=== PATIENT | female | born 1995 | race Caucasian/White ===

== ENCOUNTER 2023-07-20 09:58 | Outpatient (OUT) | payer OTHER, SELFPAY ==
[2023-07-20 10:10] LABS: Basophils Absolute Auto 0.1 10^3/uL (0.0-0.1); Basophils Percent Auto 0.7 % (0.2-2.0); Eosinophils Absolute Auto 0.2 10^3/uL (0.0-0.7); Eosinophils Percent Auto 1.7 % (0.9-7.0); Hematocrit 44.2 % (36.0-48.0); Hemoglobin 14.9 g/dL (12.0-16.0); Immature Granulocytes Abs Auto 0.02 10^3/uL (0.00-0.03); Immature Granulocytes Pct Auto 0.2 % (0.0-0.5); Lymphocytes Absolute Auto 1.7 10^3/uL (1.2-3.8); Lymphocytes Percent Auto 19.2 % (20.5-60.0); Mean Corpuscular HGB Conc 33.7 g/dL (29.9-35.2); Mean Corpuscular Hemoglobin 28.9 pg (26.7-34.0); Mean Corpuscular Volume 85.8 fL (81.0-99.0); Mean Platelet Volume 12.4 fL (9.5-13.5); Monocytes Absolute Auto 0.8 10^3/uL (0.3-0.8); Monocytes Percent Auto 8.4 % (1.7-12.0); Neutrophils Absolute Auto 6.3 10^3/uL (1.4-6.5); Neutrophils Percent Auto 69.8 % (43.0-75.0); Platelet Count 262 10^3/uL (150-450); Red Blood Count 5.15 10^6/uL (4.20-5.40)
[2023-07-20 11:01] LABS: Alanine Aminotransferase 26 U/L (14-59); Albumin Level 4.2 g/dL (3.4-5.0); Alkaline Phosphatase 71 U/L (46-116); Anion Gap 14.3; Aspartate Amino Transferase 23 U/L (15-37); BUN Creatinine Ratio 8.3; Bilirubin Total 0.8 mg/dL (0.2-1.0); Calcium 8.7 mg/dL (8.5-10.1); Carbon Dioxide 26.2 mmol/L (21.0-32.0); Chloride 102 mmol/L (98-107); Estimated GFR (African America >60 (>=60); Estimated GFR (Non-African Ame >60 (>=60); Globulin 4.3 g/dL; Glucose 92 mg/dL (74-106); Potassium 3.5 mmol/L (3.5-5.1); Sodium 139 mmol/L (136-145); Total Protein 8.5 g/dL (6.4-8.2)
== END 2023-07-20 09:59 | disposition home or self-care (01) ==
PROVIDERS: PCP Internal Medicine; Visit Provider Internal Medicine
DX: Z01.818 Encounter for other preprocedural examination (principal)
CPT/HCPCS: 36415; 80053; 85025

== ENCOUNTER 2025-10-09 08:04 | Outpatient (OUT) | payer OTHER, SELFPAY ==
--- OUTSIDE RECORDS SUMMARY | 2025-10-07 09:00 | XMS_ITS | Encounter Summary ---
Author Organization [facility] Address [address] [place] [address] Care Team Providers Care Hvac R Tech Name Role Phone Shaikh SONIDO Kearney Unavailable [phone] Usman Amaya DO Primary Care Provider [phone] Reason for Visit * ReasonCommentsGAHT Encounter Details DateTypeDepartmentCare Team (Latest Contact Info)Qtlgzwydmyj49/11/2025 9:00 AM ESTOffice Visit [facility] [address], [address] [place] [address] Usman Amaya DO [address] [facility] [address] [place] [address] White coat syndrome without diagnosis of hypertension (Primary Dx); Gender dysphoria; Gender dysphoria in adult Social History Tobacco UseTypesPacks/DayYears UsedDateSmoking Tobacco: NeverSmokeless Tobacco: NeverAlcohol UseStandard Drinks/WeekCommentsNever0 (1 standard drink = 0.6 oz pure alcohol)B1300 Health LiteracyAnswerDate RecordedHow often do you need to have someone help you when you read instructions, pamphlets, or other written material from your doctor or pharmacy?Never06/06/2025Humiliation, Afraid, Rape, and Kick questionnaireAnswerDate RecordedWithin the last year, have you been afraid of your partner or ex-partner?No06/06/2025Within the last year, have you been humiliated or emotionally abused in other ways by your partner or ex-partner?No06/06/2025Within the last year, have you been kicked, hit, slapped, or otherwise physically hurt by your partner or ex-partner?No06/06/2025Within the last year, have you been raped or forced to have any kind of sexual activity by your partner or ex-partner?No06/06/2025Social Connection and Isolation Panel AnswerDate RecordedIn a typical week, how many times do you talk on the phone with family, friends, or neighbors?Three times a week06/06/2025How often do you get together with friends or relatives?More than three times a week06/06/2025How often do you attend shinto or catholic services?Never06/06/2025Do you belong to any clubs or organizations such as shinto groups, unions, [employer] or athletic groups, or school groups?No06/06/2025How often do you attend meetings of the clubs or organizations you belong to?Never06/06/2025re you , , , , never , or living with a partner?Never 06/06/2025UDIT-CAnswerDate RecordedQ1: How often do you have a drink containing alcohol?Never07/08/2025Q2: How many drinks containing alcohol do you have on a typical day when you are drinking?Patient does not drink07/08/2025Q3: How often do you have six or more drinks on one occasion?Never07/08/2025Overall Financial Resource Strain (CARDIA)AnswerDate RecordedHow hard is it for you to pay for the very basics like food, housing, medical care, and heating?Not very hard 06/06/2025PHQ-2AnswerDate RecordedPatient Health Questionnaire-2 Score0 10/07/2025[facility] Occupational Health - Occupational Stress QuestionnaireAnswerDate RecordedDo you feel stress - tense, restless, nervous, or anxious, or unable to sleep at night because yourmind is troubled all the time - these days?Rather much06/06/2025Exercise Vital SignAnswerDate RecordedOn average, how many days per week do you engage in moderate to strenuous exercise (like a brisk walk)?1 day06/06/2025On average, how many minutes do you engage in exercise at this level?10 min06/06/2025Hunger Vital SignAnswerDate Recorded Within the past 12 months, you worried that your food would run out before you got the money to buymore.Never true06/06/2025Within the past 12 months, the food you bought just didn't last and you didn't have money to get more.Never true 06/06/2025PRAPARE - TransportationAnswerDate RecordedIn the past 12 months, has lack of transportation kept you from medical appointments or from getting medications?No06/06/2025In the past 12 months, has lack of transportation kept you from meetings, work, or from getting things needed for daily living?No 06/06/2025Housing Stability Vital SignAnswerDate RecordedIn the last 12 months, was there a time when you were not able to pay the mortgage or rent on time?No 06/06/2025In the past 12 months, how many times have you moved where you were living?t any time in the past 12 months, were you homeless or living in a fpc (including now)?No06/06/2025CommentsUnknownSex and Gender InformationValueDate RecordedSex Assigned at BirthNot on fileLegal SexMale 06/06/2025 1:15 PM EDTGender IdentityTransgender Male06/06/2025 1:15 PM EDT Sexual KpemxxqvbilKtlwhzsb05/15/2025 9:28 AM EDTdocumented as of this encounter Last Filed Vital Signs Vital SignReadingTime TakenCommentsBlood Ycrhxykc720/80112/07/2024 9:04 AM EST Rtirn19618/11/2025 9:04 AM CDNKhzmzvakigq67.1 ??C (98.8 ??F)10/07/2025 9:04 AM ESTRespiratory Vwfx0761 9:04 AM ESTOxygen Sctwsxyiyo36%10/07/2025 9:04 AM ESTInhaled Oxygen Concentration--Tsrxrw27.4 kg (175 lb)10/07/2025 9:04 AM EST Krzggw661.1 cm (5' 5 )10/07/2025 9:04 AM ESTBody Mass Index29.12112/07/2024 9:04 AM ESTdocumented in this encounter Functional Status * Over the past 2 weeks, how often have you been bothered by any of the following problems?QuestionAnswerDate of AssessmentAuthorLittle interest or pleasure in doing thingsNot at all10/07/2025 9:04 AM Radha Cee MA Feeling down, depressed, or hopelessNot at all10/07/2025 9:04 AM Radha Cee MAPatient Health Questionnaire-2 Ulvrn27912/07/2024 9:04 AM Radha Cee MA documented as of this encounter Progress Notes * Usman Amaya DO - 10/07/2025 9:00 AM EST Images from the original note were not included. FAMILY MEDICINE NOTE Chief Complaint: GAHT HPI: Gender Affirming Care How have you been feeling overall since your last visit: Doing well Yes No Question Comments [] [x] Side Effects [] [x] Changes in mood [] [x] Changes in appetite [] [x] Missed doses [x] [] Positive changes in body/appearance [] [x] Any questions today For Injections: Any pain, swelling, or irritation at the injection sites: None Any difficulty with self-injection or anxiety about the process: None Gender Identity: transgender male Hypertension: Medication changes: No. Taking medications as prescribed: N/A Patient monitors blood pressure at home: yes. Log present today: yes. Any symptoms/side effects: No Social History Substance and Sexual Activity Sexual Activity Not on file Social History: Tobacco Use: Tobacco Use: Low Risk (10/07/2025) Patient History Smoking Tobacco Use: Never Smokeless Tobacco Use: Never Passive Exposure: Not on file Family History[1] SUBJECTIVE: Past Medical History SURGICAL/SOCIAL ALLERGIES: Medical History[2] Surgical History[3] Social History[4] Allergies[5] OBJECTIVE: 10/07/2025 9:04 AM 07/08/2025 8:57 AM 06/10/2025 9:17 AM Vitals BMI 29.12 kg/m2 29.12 kg/m2 29.12 kg/m2 BSA (m2) 1.91 m2 1.91 m2 1.91 m2 Systolic 128 148 124 Diastolic 80 98 98 Heart Rate 129 128 123 SpO2 98 % 99 % 99 % Temp 98.8 ??F 98 ??F 99.1 ??F Resp 20 20 20 Height (in) 5' 5 5' 5 5' 5 Weight (lb) 175 175 175 Visit Report Report Report Physical Exam Constitutional: Appearance: Normal appearance. Cardiovascular: Rate and Rhythm: Normal rate and regular rhythm. Heart sounds: No murmur heard. No friction rub. No gallop. Pulmonary: Breath sounds: Normal breath sounds. No wheezing, rhonchi or rales. Abdominal: General: Abdomen is flat. Bowel sounds are normal. There is no distension. Palpations: Abdomen is soft. There is no mass. Tenderness: There is no abdominal tenderness. There is no guarding. Musculoskeletal: General: Normal range of motion. Skin: General: Skin is warm. Neurological: General: No focal deficit present. Mental Status: He is alert. Mental status is at baseline. Psychiatric: Mood and Affect: Mood and affect normal. Behavior: Behavior normal. ASSESSMENT AND PLAN: Hollis was seen today for [facility]. Diagnoses and all orders for this visit: White coat syndrome without diagnosis of hypertension (Primary) Gender dysphoria - testosterone cypionate (Depo-Testosterone) 200 MG/ML injection; Inject 0.8 mL (160 mg) into the shoulder, thigh, or buttocks every 14 (fourteen) days - Syringe 23G X 1 3 ML misc; 1 Dose 1 (one) time per week - Syringe/Needle, Disp, (B-D 3CC LUER-BERNIE SYR 48KX4-1/2) 18G X 1-1/2 3 ML misc; Inject 1 Application into the shoulder, thigh, or buttocks 1 (one) time per week Gender dysphoria in adult - Testosterone, free, total; Future - CBC auto differential; Future - Testosterone, free, total - CBC auto differential Gender dysphoria: - recent change to intramuscular testosterone from transdermal. No significant injection site reactions or adverse effects reported. - Sent prescription refills to [facility] in [place]. Ordered blood work to assess testosterone troughlevels, to be drawn at [facility] the day before next scheduled injection. Advised that fasting is not required for blood draw. Follow-up scheduled in three months, with option for virtual or in-person visit. White coat hypertension: - Well-controlled blood pressure in office today and reportedly home logs are well-controlled, no change to current medical plan Patient's Medications New Prescriptions No medications on file Previous Medications No medications on file Modified Medications Modified Medication Previous Medication SYRINGE 23G X 1 3 ML MISC Syringe 23G X 1 3 ML misc 1 Dose 1 (one) time per week 1 Dose 1 (one) time per week SYRINGE/NEEDLE, DISP, (B-D 3CC LUER-BERNIE SYR 60EY9-2/2) 18G X 1-1/2 3 ML MISC B- D 3CC LUER-BERNIE SYR 15LX3-5/2 18G X 1-1/2 3 ML misc Inject 1 Application into the shoulder, thigh, or buttocks 1 (one) time per week use to INJECT testosterone ONCE A WEEK TESTOSTERONE CYPIONATE (DEPO-TESTOSTERONE) 200 MG/ML INJECTION testosterone cypionate (Depo-Testosterone) 200 MG/ML injection Inject 0.8 mL (160 mg) into the shoulder, thigh, or buttocks every 14 (fourteen) days Inject 0.8 mL(160 mg) into the shoulder, thigh, or buttocks every 14 (fourteen) days Discontinued Medications No medications on file Follow up in about 3 months (around 01/07/2026) for gaht f/u, virtual or in person okay. This note was prepared in part with the assistance of dictation and AI technologies; minor errors or omissions may be present. Usman Amaya DO [1] Family History Problem Relation Name Age of Onset Lung cancer Paternal Grandmother Diabetes Other [2] Past Medical History: Diagnosis Date Sleep apnea [3] Past Surgical History: Procedure Laterality Date BREAST SURGERY Bilateral TUBAL LIGATION Bilateral [4] Social History Tobacco Use Smoking status: Never Smokeless tobacco: Never Substance Use Topics Alcohol use: Never Drug use: Never [5] Allergies Allergen Reactions Peanut-Containing Drug Products Anaphylaxis and Hives Sulfa Antibiotics Anaphylaxis, Hives and Other documented in this encounter Plan of Treatment DateTypeDepartmentCare Team (Latest Contact Info)Niivmckgbos58/11/2026 9:20 AM ESTOffice Visit [facility] [address], [address] [place] [address] Usman Amaya DO [address] [place] [address] NameTypePriorityAssociated DiagnosesOrder ScheduleTestosterone, free, totalLab Routine Gender dysphoria in adult Expected: 10/07/2025 (Approximate), Expires: 10/07/2026BC auto differentialLab Routine Gender dysphoria in adult Expected: 10/07/2025 (Approximate), Expires: 10/07/2026documented as of this encounter Visit Diagnoses Diagnosis White coat syndrome without diagnosis of hypertension- Primary Gender dysphoria Gender dysphoria in adult documented in this encounter Care Teams Team MemberRelationshipSpecialtyStart DateEnd Date Shaikh Kearney MD [address] [place] [address] PCP - Medical [place] [employer]06/27/2212 Usman Amaya DO [address] [place] [address] PCP - GeneralFamily Medicine06/10/25documented as of this encounter
--- OUTSIDE RECORDS SUMMARY | 2025-10-09 08:10 | XMS_ITS | Encounter Summary ---
Author Organization [facility] Address [address] [place] [address] Care Team Providers Care Post Tronic Machine Operator Name Role Phone Shaikh SONIDO Kearney Unavailable [phone] Usman Amaya DO Primary Care Provider [phone] Encounter Details DateTypeDepartmentCare Team (Latest Contact Info)Osrofelorhy89/11/2025amboo flowsheet [facility] [address], [address] [place] [address] Usman Amaya DO [address] [place] [address] Social History Tobacco UseTypesPacks/DayYears UsedDateSmoking Tobacco: NeverSmokeless [...] times a week06/06/2025How often do you attend restorationism or synagogue services?Never06/06/2025Do you belong to any clubs or organizations such as restorationism groups, unions, fraternal or athletic groups, or school groups?No06/06/2025How often [...] very hard 06/06/2025PHQ-2AnswerDate RecordedPatient Health Questionnaire-2 Score0 10/07/2025[facility] [place] of Occupational Health - Occupational Stress QuestionnaireAnswerDate [...] were you homeless or living in a [place] (including now)?No06/06/2025CommentsUnknownSex and Gender InformationValueDate RecordedSex Assigned at BirthNot on fileLegal SexMale 06/06/2025 1:15 PM EDTGender IdentityTransgender Male06/06/2025 1:15 PM EDT Sexual OdqazbojvcxNqitnmie22/15/2025 9:28 AM EDTdocumented as of this encounter Plan of Treatment DateTypeDepartmentCare Team (Latest Contact Info)Xkwkidyzzoc12/11/2026 9:20 AM ESTOffice Visit [facility] [address], [address] [place] [address] Usman Amaya DO [address] [place] [address] documented as of this encounter Visit Diagnoses Not on filedocumented in this encounter Care Teams Team MemberRelationshipSpecialtyStart DateEnd Date Shaikh Kearney MD [address] [place] [address] PCP - Medical [place] [employer]06/27/2212 Usman Amaya DO [address] [address] [facility]documented as of this encounter
--- OUTSIDE RECORDS SUMMARY | 2025-10-09 08:10 | XMS_ITS | Clinical Summary ---
Author Organization [facility] Address [address] [place] [address] Care Team Providers Care Right Of Way Manager Name Role Phone No, Physician Primary Care Provider Unavailabl e Allergies Active AllergyReactionsCriticalityNoted XurgVxqewecfUruucqaOqpdlJws50/07/2023 Peanut allergy. Avoid all nuts. Sulfa (Sulfonamide Antibiotics)Skrnvem3507/27/2023 Medications MedicationSigDispense QuantityRefillsLast FilledStart DateEnd DateStatus testosterone 1.62 % (40.5 mg/2.5 gram) GlPk Place 40.5 mg on the skin daily USE ONE PUMP DAILY .Active cetirizine (ZYRTEC) 10 MG tablet Take 1 (one) tablet (10 mg total) by mouth daily .Active Active Problems ProblemNoted DateDiagnosed DateGender dysphoria in adult08/03/2023 Social History Tobacco UseTypesPacks/DayYears UsedDateSmoking Tobacco: NeverSmokeless Tobacco: Never Tobacco Cessation:Counseling Given: Not Answered Alcohol UseStandard Drinks/WeekCommentsYes0 (1 standard drink = 0.6 oz pure alcohol)Moderate daily useCommentsUnknownSex and Gender InformationValue Date RecordedSex Assigned at BirthNot on fileLegal KbmBsbtey70/27/2023 1:21 PM EDTGender OqwztoljKyff26/22/2023 9:41 AM EDTSexual VqcsnidkavmIgifvrkv72/22/2023 9:41 AM EDT Last Filed Vital Signs Vital SignReadingTime TakenCommentsBlood Zuqdmweo327/7409 7:32 AM EDT Qtcjj22267/08/2023 7:32 AM FNVEbgukhfoupw87.8 ??C (98.3 ??F)08/04/2023 7:32 AM EDTRespiratory Xrqv904408/04/2023 7:42 AM EDTOxygen Goxvzjimhz28%08/04/2023 7:32 AM EDTInhaled Oxygen Concentration--Hwjalg58.1 kg (187 lb 9.6 oz)08/03/2023 6:00 AM SZLCkufdq785.1 cm (5' 5 )08/03/2023 6:00 AM EDTBody Mass Index31.22008/03/2023 6:00 AM EDT Plan of Treatment Not on file Medical Devices ImplantedTypeAreaManufacturerDevice IdentifierShelf Expiration DateModel / Serial / LotSealant 2ml Artiss Kitted W/Teller Set Frozen - [id number] Implanted:Qty: 1 on 08/03/2023 by Arlette Dominguez MD at [facility] Special Cost ItemN/A: BreastBAXTER [id number] / / [id number] Insurance * Guarantor: Hollis MarkhamAccount TypeRelation to PatientDate of BirthPhoneBilling AddressPersonal/EdymkuSoxh1994 [phone] (Home) [address] [place] [address] Advance Directives For more information, please contact: [phone] * Full Code (Latest Code Status on File) Date ActivatedDate InactivatedComments08/03/2023 1:13 PM08/04/2023 1:48 PM Care Teams Team MemberRelationshipSpecialtyStart DateEnd Date No, Physician [facility] PCP - General07/18/23
--- OUTSIDE RECORDS SUMMARY | 2025-10-09 08:11 | XMS_ITS | Encounter Summary ---
Author Organization [facility] Address [address] [place] [address] Care Team Providers Care King Maker Name Role Phone Shaikh SONIDO Kearney Unavailable [phone] Usman Amaya DO Primary Care Provider [phone] Reason for Visit * ReasonCommentsMed Change Request Encounter Details DateTypeDepartmentCare Team (Latest Contact Info)Hivpexjoxuw58/11/2025Refill [facility] [address], [address] [place] [address] Usman Amaya DO [address] [place] [address] Gender dysphoria Social History Tobacco UseTypesPacks/DayYears UsedDateSmoking Tobacco: NeverSmokeless [...] times a week06/06/2025How often do you attend gnosticism or pentecostal services?Never06/06/2025Do you belong to any clubs or organizations such as gnosticism groups, unions, fraternal or athletic groups, or [...] very hard 06/06/2025PHQ-2AnswerDate RecordedPatient Health Questionnaire-2 Score0 10/07/2025[facility] [place] of Occupational Health - Occupational Stress QuestionnaireAnswerDate [...] were you homeless or living in a intermediate (including now)?No06/06/2025CommentsUnknownSex and Gender InformationValueDate RecordedSex Assigned at BirthNot on fileLegal SexMale 06/06/2025 1:15 PM EDTGender IdentityTransgender Male06/06/2025 1:15 PM EDT Sexual EgontufzqmgCorgxeyk88/15/2025 9:28 AM EDTdocumented as of this encounter Functional Status * Over the past 2 weeks, how often have you been bothered by any of the following problems?QuestionAnswerDate of AssessmentAuthorLittle interest or pleasure in doing thingsNot at all10/07/2025 9:04 AM Radha Cee MA Feeling down, depressed, or hopelessNot at all10/07/2025 9:04 AM Radha Cee MAPatient Health Questionnaire-2 Ynqld39612/07/2024 9:04 AM Radha Cee MA documented as of this encounter Plan of Treatment DateTypeDepartmentCare Team (Latest Contact Info)Scrocojuspt21/11/2026 9:20 AM ESTOffice Visit [facility] [address], [address] [place] [address] Usman Amaya DO [address] [facility] [address] [place] [address] documented as of this encounter Visit Diagnoses Diagnosis Gender dysphoria documented in this encounter Care Teams Team MemberRelationshipSpecialtyStart DateEnd Date Shaikh Kearney MD [address] [place] [address] PCP - Medical [place] [employer]06/27/2212 Usman Amaya DO [address] [facility] [address] [place] [address] PCP - GeneralFamily Medicine06/10/25documented as of this encounter
--- OUTSIDE RECORDS SUMMARY | 2025-10-09 08:11 | XMS_ITS | Clinical Summary ---
Author Organization [facility] Address [address] [place] [address] Care Team Providers Care Hand Assembler Name Role Phone Shaikh SONIDO Kearney Unavailable [phone] Usman Amaya DO Primary Care Provider [phone] Allergies Active AllergyReactionsCriticalityNoted DateCommentsPeanut-Containing Drug ProductsAnaphylaxis,IubtxAjek92/01/2022ulfa AntibioticsAnaphylaxis,Hives,Other High11/09/2021 Medications MedicationSigDispense QuantityRefillsLast FilledStart DateEnd DateStatus testosterone cypionate (Depo-Testosterone) 200 MG/ML injection Indications:Gender dysphoriaInject 0.8 mL (160 mg) into the shoulder, thigh, or buttocks every 14 (fourteen) days 2 mL /5Active Syringe/Needle, Disp, (B-D 3CC LUER-BERNIE SYR 88SG4-2/2) 18G X 1-1/2 3 ML misc Indications:Gender dysphoriaInject 1 Application into the shoulder, thigh, or buttocks every 14 (fourteen) days 7 each /6Active Syringe/Needle, Disp, (B-D 3CC LUER-BERNIE SYR 23GX1 ) 23G X 1 3 ML misc Indications:Gender dysphoriaInject 1 Application into the shoulder, thigh, or buttocks every 14 (fourteen) days 7 each 502/6Active testosterone cypionate (Depo-Testosterone) 200 MG/ML injection Indications:Gender dysphoriaInject 0.8 mL (160 mg) into the shoulder, thigh, or buttocks every 14 (fourteen) days 2 mL Discontinued(Reorder) Syringe 23G X 1 3 ML misc Indications:Gender dysphoria1 Dose 1 (one) time per week 13 each /09/2025Discontinued(Reorder) B-D 3CC LUER-BERNIE SYR 20RX3-8/2 18G X 1-1/2 3 ML misc Indications:Gender dysphoriause to INJECT testosterone ONCE A WEEK 13 each Discontinued(Reorder) testosterone cypionate (Depo-Testosterone) 200 MG/ML injection Indications:Gender dysphoriaInject 0.8 mL (160 mg) into the shoulder, thigh, or buttocks every 14 (fourteen) days 2 mL /09/2025Discontinued(Reorder) Syringe 23G X 1 3 ML misc Indications:Gender dysphoria1 Dose 1 (one) time per week 13 each Discontinued Syringe/Needle, Disp, (B-D 3CC LUER-BERNIE SYR 09BO1-9/2) 18G X 1-1/2 3 ML misc Indications:Gender dysphoriaInject 1 Application into the shoulder, thigh, or buttocks 1 (one) time per week 13 each Discontinued Active Problems ProblemNoted DateDiagnosed DateSleep apnea Assessment & Plan (06/10/2025 11:19 AM EDT): Continue with sleep medicine follow up and continue use of CPAP machine as prescribed Encounters DateTypeDepartmentCare OqayDpzmuneluke77/11/2025 9:00 AM ESTOffice Visit [facility] [address], [address] [place] [address] Usman Amaya DO White coat syndrome without diagnosis of hypertension (Primary Dx); Gender dysphoria; Gender dysphoria in adult10/07/2025Refill [facility] [address], [address] [place] [address] Usman Amaya, DO Gender deaafmkxb78/11/2025amboo flowsheet [facility] [address], [address] [place] [address] Usman Amaya, DO 10/03/20254787Paokfi23/15/2025Refill [facility] [address], [address] [place] [address] Usman Amaya, DO Gender baevkovam57/19/2025Refill [facility] [address], [address] [place] [address] Usman Amaya, DO Gender egptiidmt52/21/2025 8:45 AM EDTClinical Support [facility] [address], [facility] [address] [place] [address] 07/16/2025Travelfrom Last 3 Months Family History Medical HistoryRelationNameCommentsDiabetesOtherLung cancerPaternal Grandmother RelationNameStatusCommentsFatherAliveMaternal GrandfatherDeceasedMaternal GrandmotherDeceasedMotherAliveOtherPaternal GrandfatherDeceasedPaternal GrandmotherDeceasedSisterAlive Social History Tobacco UseTypesPacks/DayYears UsedDateSmoking Tobacco: NeverSmokeless Tobacco: Never Tobacco Cessation:Counseling Given: Not Answered Alcohol UseStandard Drinks/WeekCommentsNever0 (1 standard drink = 0.6 [...] week06/06/2025How often do you attend shinto or orthodoxy services?Never06/06/2025Do you belong to any clubs or organizations such as shinto groups, unions, fraternal or athletic groups, or [...] Health Questionnaire-2 Score0 10/07/2025[facility] [place] [facility] - Occupational Stress QuestionnaireAnswerDate [...] were you homeless or living in a fci (including now)?No06/06/2025CommentsUnknownSex and Gender InformationValueDate RecordedSex Assigned at BirthNot on fileLegal SexMale 06/06/2025 1:15 PM EDTGender IdentityTransgender Male06/06/2025 1:15 PM EDT Sexual FikyvlaysjxTtqkggpj47/15/2025 9:28 AM EDT Last Filed Vital Signs Vital SignReadingTime TakenCommentsBlood Ozxkcvli349/80112/07/2024 9:04 AM EST Dkjmv93749/11/2025 9:04 AM RTPCfokvhyalfz71.1 ??C (98.8 ??F)10/07/2025 9:04 AM ESTRespiratory Dnow444912/07/2024 9:04 AM ESTOxygen Rmzmkrkead25%10/07/2025 9:04 AM ESTInhaled Oxygen Concentration--Xjoqyc17.4 kg (175 lb)10/07/2025 9:04 AM EST Czgqja677.1 cm (5' 5 )10/07/2025 9:04 AM ESTBody Mass Index29.12112/07/2024 9:04 AM EST Plan of Treatment DateTypeDepartmentCare Team (Latest Contact Info)Kvglaerxmfd08/11/2026 9:20 AM ESTOffice Visit [facility] [address], [address] [place] [phone] Usman Amaya DO [address] [place] [address] Health MaintenanceDue DateLast DoneCommentsCOVID-19 Vaccine ( season) 5008/17/2024, 09/25/2021, 03/18/2021, Additional history existsInfluenza Vaccine (#1)509/, 09/09/2023, 08/28/2022, Additional history existsCervical Cancer ScreeningDiscontinuedPap MmcyuMgmlmesitsrp70/03/2025, 11/27/2017HPV/CotestDiscontinuedPneumococcal Vaccine: Pediatrics (0 to 5 Years) and At-Risk Patients (6 to 64 Years)Aged OutNo longer eligible based on patient's age to complete this topic Insurance Care Teams Team MemberRelationshipSpecialtyStart DateEnd Date Shaikh Kearney MD [address] [place] [phone] [phone] PCP - Medical [facility]06/27/2212 Usman Amaya DO [address] [address] [facility]
--- OUTSIDE RECORDS SUMMARY | 2025-10-09 08:11 | XMS_ITS | Encounter Summary ---
Author Organization [facility] Address [address] [place] [address] Care Team Providers Care Instructor Adjunct Surgical Technician Name Role Phone Shaikh SONIDO Kearney Unavailable [phone] Usman Amaya DO Primary Care Provider [phone] Encounter Details DateTypeDepartmentCare Team (Latest Contact Info)Mjjlxfzxvjo04/07/2025Travel Social History Tobacco UseTypesPacks/DayYears UsedDateSmoking Tobacco: NeverSmokeless [...] times a week06/06/2025How often do you attend zoroastrianism or pentecostalism services?Never06/06/2025Do you belong to any clubs or organizations such as zoroastrianism groups, unions, fraternal or athletic groups, or [...] very hard 06/06/2025PHQ-2AnswerDate RecordedPatient Health Questionnaire-2 Score0 07/08/2025[facility] [place] [facility] - Occupational Stress QuestionnaireAnswerDate [...] were you homeless or living in a halfway (including now)?No06/06/2025CommentsUnknownSex and Gender InformationValueDate RecordedSex Assigned at BirthNot on fileLegal SexMale 06/06/2025 1:15 PM EDTGender IdentityTransgender Male06/06/2025 1:15 PM EDT Sexual FeepqarblixHzpsltec43/15/2025 9:28 AM EDTdocumented as of this encounter Plan of Treatment DateTypeDepartmentCare Team (Latest Contact Info)Xxrdofvcrwm25/11/2026 9:20 AM ESTOffice Visit [facility] [address], [address] [place] [phone] Usman Amaya DO [address] [place] [address] documented as of this encounter Visit Diagnoses Not on filedocumented in this encounter Care Teams Team MemberRelationshipSpecialtyStart DateEnd Date Shaikh Kearney MD [address] [place] [address] PCP - Medical [employer]/ Usman Amaya DO [address] [place] [address] PCP - GeneralFamily Medicine06/10/25documented as of this encounter
[2025-10-09 08:37] LABS: Hematocrit 48.5 % (36.0-48.0); Hemoglobin 16.0 g/dL (12.0-16.0); Immature Granulocytes Abs Auto 0.03 10^3/uL (0.00-0.03); Immature Granulocytes Pct Auto 0.4 % (0.0-0.5); Lymphocytes Absolute Auto 2.0 10^3/uL (1.2-3.8); Mean Corpuscular HGB Conc 33.0 g/dL (29.9-35.2); Mean Corpuscular Hemoglobin 29.6 pg (26.7-34.0); Mean Corpuscular Volume 89.8 fL (81.0-99.0); Platelet Count 206 10^3/uL (150-450); Red Blood Count 5.40 10^6/uL (4.20-5.40); White Blood Count 8.2 10^3/uL (4.0-11.0)
== END 2025-10-09 08:05 | disposition home or self-care (01) ==
PROVIDERS: PCP Student in an Organized Health Care Education/Training Program; Visit Provider Student in an Organized Health Care Education/Training Program
DX: F64.0 Transsexualism (principal)
CPT/HCPCS: 36415; 84402; 84403; 85025